=== PATIENT | male | born 1940 | race Caucasian/White ===

== ENCOUNTER 2016-09-19 09:36 | Inpatient (IN) | payer MEDICARE ==
--- NOTE | ~2016-09-19 | CN ---
Consultation Report [facility] [address] [place]. [address] NAME: LYNN PHELAN : 42 STATUS : ADM Albertina PAT#: [id number] AGE: 76 ADM/REG DATE : 09/19/16 MR#: [id number] REPORT SERV DATE: 09/20/16 DICTATED BY: ANSELMO HARO DATE: 09/19/16 REPORT STATUS : Draft TRANSCRIBED BY: MODL DATE: 09/19/16 CARDIOLOGY CONSULTATION DATE OF CONSULTATION: 09/19/2016 REQUESTING PHYSICIAN: Diamond Walker M.D. INDICATIONS: Hypertensive urgency. HISTORY OF PRESENT ILLNESS: Lynn Phelan is a 76-year-old man followed in the office by Dr. Philip Ventura. The patient has a history of hypertension. He was recently seen in the office and had complained of some dizziness. Based on this, his amlodipine was discontinued. He then presents to the emergency room today with high blood pressure, 203/96. In the emergency room, he apparently did not receive any of his blood pressure medications today. Throughout the day, he has become a bit more anxious and his blood pressure is now 246/110 with complaints of chest pain and headache, and we were asked to evaluate with the patient urgently. The patient has apparently been having some substernal burning sensation in his chest. It was felt possibly to be related to some spicy food that he ate on review of the office notes. He has a difficult time qualifying the chest discomfort he has experienced in the present time. No orthopnea, no PND, and no significant shortness of breath. By chest x-ray, he has venous congestion. PAST MEDICAL HISTORY: Chronic kidney disease, arthritis, coronary artery disease, previous bypass grafting, previous PCI and peripheral vascular disease, carotid artery stenosis, diabetes, hypertension, hyperlipidemia, previous MD, and obesity. HOME MEDICATIONS: Listed in [facility] home medicine form and reviewed. SOCIAL HISTORY: Former smoker. No alcohol. FAMILY HISTORY: Reviewed and noncontributory. REVIEW OF SYSTEMS: As per the HPI. Otherwise, all review of systems is negative. PHYSICAL EXAMINATION: VITAL SIGNS: Blood pressure 246/110. GENERAL: Appears stated age. The patient is anxious and red in the face. EYES: Sclerae anicteric, no arcus senilis. MOUTH: Oral mucosa moist, lips acyanotic. Consultation Report [facility] [address] [place]. [address] NAME: LYNN PHELAN : 42 STATUS : ADM Albertina PAT#: [id number] AGE: 76 ADM/REG DATE : 09/19/16 MR#: [id number] REPORT SERV DATE: 09/20/16 DICTATED BY: ANSELMO HARO DATE: 09/19/16 REPORT STATUS : Draft TRANSCRIBED BY: MODL DATE: 09/19/16 NECK: Jugular venous pressure normal, no carotid bruits. LUNGS: Lungs are mostly clear. CARDIAC: Heart is tachycardic with frequent ectopy. ABDOMEN: Obese, soft, and nontender. EXTREMITIES: No edema. SKIN: Warm and dry. NEURO/PSYCH: Alert and oriented, nonfocal, mood appropriate. DIAGNOSTIC DATA: ECG is sinus rhythm with a right bundle-branch block conduction pattern and lateral ST changes consistent with ischemia. Premature ventricular contraction. As stated previously, chest x-ray is reported as consistent with venous congestion. Data: BNP 327, creatinine 1.1, potassium 4.1, and troponin 0.02. IMPRESSIONS: 1. Hypertensive urgency with chest pain, headache, and venous congestion on chest x-ray. 2. Coronary artery disease, previous bypass grafting, previous PCI. 3. Peripheral vascular disease and carotid artery stenosis. 4. Diabetes. RECOMMENDATION: Control blood pressure. We will resume the patient's Coreg. We will increase lisinopril to 10 mg daily. We will add Norvasc 5 mg b.i.d. We will add as-needed clonidine. We will add as-needed labetalol. We will add as-needed IV enalapril. Otherwise, follow labs. Follow troponin. Consider ischemia evaluation pending patient's clinical course. ANGELLA/BROOKE Anselmo Haro M.D. / [id number] CC: Malgorzata Garcia M.D.
--- NOTE | ~2016-09-19 | DS ---
Discharge Summary [place] [id number] [facility] [place]. [address] NAME: LYNN PHELAN : 42 STATUS : DIS IN PAT#: [id number] AGE: 76 ADM/REG DATE : 09/19/16 MR#: [id number] REPORT SERV DATE: 09/22/16 DICTATED BY: DATE: REPORT STATUS : Draft TRANSCRIBED BY: MODL DATE: 09/21/16 ADMISSION DATE: 09/19/2016 DISCHARGE DATE: 09/21/2016 DISCHARGE DIAGNOSES: 1. Uncontrolled hypertension. 2. Shortness of breath on exertion. 3. Dizziness. 4. Atypical chest pain. 5. Diabetes mellitus type 2. 6. History of congestive heart failure. 7. History of myocardial infarction. 8. History of CABG x5. 9. History of chronic kidney disease stage 3. 10.History of coronary artery disease with stents. 11.Hyperlipidemia. 12.Osteoarthritis. 13.History of left carotid endarterectomy. 14.Hydrocele. CONSULTATION: Cardiology, Dr. Haro. PROCEDURES AND IMAGIN. 09/19/2016, portable chest x-ray showed mild central venous congestion. 2. 09/19/2016, CT of the brain without contrast shows no acute infarct or hemorrhage, stable mild atrophy and moderate chronic white matter gliosis. 3. Renal ultrasound on 09/20/2016 showed kidneys symmetric. Not obstructed. Multiple cysts identified bilaterally. No suspect features. 4. 09/20/2016, renal duplex showed no evidence of renal artery stenosis. 5. Echocardiogram on 09/20/2016 showed technically difficult study secondary to poor acoustic windows. Grossly normal left ventricular systolic function with ejection fraction of 55%. Grossly normal right ventricular size and systolic function. No evidence of valvular regurgitation or stenosis. 6. 09/20/2016, portable chest x-ray showed mild bibasilar atelectasis with stable eventration of the right hemidiaphragm. Stable mild enlargement of the cardiac silhouette with evidence of previous CABG. HOSPITAL COURSE: Please refer to Dr. Diamond Walker's history and physical dated 09/19/2016 for complete details regarding the patient's admission. In brief, the patient was admitted for initial workup and management of his complaint of dizziness, hypertension, and epigastric burning and shortness of breath on exertion. The patient had just seen Dr. Ventura two days prior to admission and at that time, his blood pressure was stable. The patient had some complaints of dizziness and lower extremity edema at that visit. During his stay in the hospital, the patient has had extensive testing done, which has been negative. The patient has continued to exhibit uncontrolled hypertension despite addition of amlodipine with blood pressures exceeding 200 systolically. The patient has required IV Discharge Summary [address] [place]. [address] NAME: LYNN PHELAN : 42 STATUS : DIS IN PAT#: [id number] AGE: 76 ADM/REG DATE : 09/19/16 MR#: [id number] REPORT SERV DATE: 09/22/16 DICTATED BY: DATE: REPORT STATUS : Draft TRANSCRIBED BY: MODL DATE: 09/21/16 hydralazine and p.o. clonidine. The patient's shortness of breath has resolved. The patient does have dizziness on a chronic basis due to an inner ear problem and does take meclizine for this. The patient's atypical chest pain has resolved at this time. The patient has had subjective headaches due to his severe hypertension that are controlled when his blood pressure is decreased below 200. The patient was given a one time dose of Lasix, which improved his venous congestion on his chest x-ray and the patient now has lung sounds that are clear. The patient has a history of chronic kidney disease stage 3, which has been stable at this time with BUN of 19, creatinine 1.35, GFR of 51. During his stay, the patient's troponins have been from 0.08-0.05. His BNP upon admission was 327.8 and his TSH was 0.916. The patient continues to have ectopy on his EKG with PACs and PVCs. The patient also has bilateral hydrocele, which is being followed by Dr. Larose. The patient will be followed up by Dr. Ventura in the next one to two weeks regarding his blood pressure issues and the renal artery ultrasound. The patient will be having a nuclear stress test early next week with sedation. PHYSICAL EXAMINATION: GENERAL: The patient is a 76-year-old male, who states no complaint of headache this morning. He denies pain and is moving more easily in bed. He desires discharge and outpatient stress test due to grandson's this afternoon. VITAL SIGNS: Blood pressure 192/86, O2 saturation 96% on room air, temperature is 99.0, respirations are 16, heart rate is 69. HEENT: Head is atraumatic, normocephalic. Pupils are equal, round, and reactive to light. No xanthelasma. Sclerae are clear and nonicteric. NECK: Neck is supple with no obvious lymphadenopathy or thyromegaly. Neck veins are flat. CARDIAC: The patient is in a regular rhythm with frequent ectopy. LUNGS: Lungs are clear to auscultation with normal respiratory effort. GI: Abdomen is soft and nontender with active bowel sounds in all four quadrants. Normal bowel habitus. No palpable organomegaly. EXTREMITIES: No significant edema, clubbing, or cyanosis. The patient has left lower extremity coke bottle discoloration scale on his skin. He has right lower extremity vascular discoloration and bilateral lower extremity atrophic nails. NEURO/PSYCH: The patient is alert and oriented x4, pleasant and cooperative. Cranial nerves II through XII are grossly intact. SKIN: Skin is warm and dry with normal turgor. DISCHARGE MEDICATIONS: Amlodipine 5 mg twice daily, aspirin 81 mg daily, Coreg 25 mg twice daily, clopidogrel 75 mg daily, vitamin B12 1000 mcg every 30 days, gabapentin 100 mg daily, lisinopril 10 mg twice daily, omeprazole 20 mg daily, Zocor 10 mg twice daily, Nitrostat 0.4 mg sublingually p.r.n. as directed, gummy vitamins two tablets daily, potassium chloride 10 mEq at bedtime, Metamucil one packet daily p.r.n. and vitamin B12 liquid 5000 mcg daily, clonidine 0.1 mg p.o. q.4 hours p.r.n. systolic blood pressure greater than or equal to 165. ALLERGIES: THE PATIENT IS ALLERGIC TO CYMBALTA FOR WHICH HE GETS HIVES AND BLISTERS, AND HE IS ALLERGIC TO STATINS, WHICH GIVES HIM HIVES AND BLISTERS, BUT CAN TAKE IN SMALL DOSES. DISCHARGE INSTRUCTIONS: The patient is to follow up with his PCP in one week for labs. He is to follow up with Dr. Ventura in one to two weeks to address his blood pressure and his Discharge Summary [address] [place]. [address] NAME: LYNN PHELAN : 42 STATUS : DIS IN [facility]#: [id number] AGE: 76 ADM/REG DATE : 09/19/16 MR#: [id number] REPORT SERV DATE: 09/22/16 DICTATED BY: DATE: REPORT STATUS : Draft TRANSCRIBED BY: MODL DATE: 09/21/16 test results. The patient will be also having a nuclear stress test with medication early next week. If the patient is to have any more episodes of extremely elevated blood pressure or chest pain or shortness of breath, the patient is to call his grain cleaner, Dr. Ventura or to present to the emergency department. Approximately, 40 minutes has been spent coordinating discharge care of this patient, including [id number] encounter and summarization of the discharge. DIPIKA/BROOKE Larissa Arias NP / [id number] CC: Camilo Barrera DAVID K
--- NOTE | ~2016-09-19 | HP ---
History And Physical [place] [id number] [facility] [place]. [address] NAME: LYNN PHELAN : 41 STATUS : ADM Albertina PAT#: [id number] AGE: 76 ADM/REG DATE : 09/19/16 MR#: [id number] REPORT SERV DATE: 09/19/16 DICTATED BY: WAYNE GRANADOS DATE: 09/19/16 REPORT STATUS : Draft TRANSCRIBED BY: MODL DATE: 09/19/16 DATE OF ADMISSION: 09/19/2016 HISTORY OF PRESENT ILLNESS: The patient is a 76-year-old male, who presented to [facility] with complaints of dizziness, being hypertensive, blood pressure on presentation was 203/96, as well as he was complaining of some epigastric burning sensation as well as he is short of breath on minimal physical exertion and walking. He has dizziness, but he says that he has dizziness for years that could be related to inner ear problem that he had before. The patient says that his heartburning sensation is exactly in the epigastric area, there is no radiation to the left arm, there is no radiation to the jaw, just kind of looks like continuous. The patient denies any fever. No headache. No abdominal pain. REVIEW OF SYSTEMS: All 14-point review of systems done and they are all negative, except for what is stated in the history of present illness. PAST MEDICAL HISTORY: Collected from medical records as well as from the patient. The patient saw Dr. Ventura on Saturday, Dr. Ventura is his microbiology technologist, and we have visit notes from 09/17/2016. At that time, he had complaints of dizziness and he also was complaining of lower extremity edema. Again, he had the episode of substernal burning-type chest pain, which occurred on 09/16/2016. It was described as sensation of burning in the esophagus according to Dr. Ventura's note. He had hypertension associated with dyspnea, at that time as well as he had premature ventricular contractions on the EKG during the visit time, which was described in the note of Dr. Ventura. On a visit two days ago, amlodipine was discontinued and there was a consideration to increase his lisinopril. During visit time, the patient's blood pressure was 150/90. His chest pain was probably related to reflux according to Dr. Ventura's note. Also, there was a concern if the patient is compliant with the CPAP. Past medical history includes chronic kidney disease stage 3; osteoarthritis; atherosclerotic heart disease; history of left carotid endarterectomy in the past; type 2 diabetes, although the patient denies any history of diabetes; essential hypertension; hypercholesterolemia; history of STEMI in the past; obesity; obstructive sleep apnea, and the patient denied any history of strokes in the past and he denied diabetes, although diabetes is listed in his past medical history. According to Dr. Ventura, he had a stress test done in 2014 and an echocardiogram in 2015, which showed mild tricuspid regurgitation, mild mitral regurgitation and ejection fraction was 60% in 06/2015. The patient had two stents placed in 06/2015. He has history of coronary artery bypass grafting in 1999. PAST SURGICAL HISTORY: Includes left carotid endarterectomy, history of knee surgery, cholecystectomy in 1985. FAMILY HISTORY: Positive for hypertension and heart disease on both sides, mother and father. The patient also has history of inner ear problem with dizziness according to him for many years. History And Physical [address] [address] NAME: LYNN PHELAN : 42 STATUS : ADM Albertina PAT#: [id number] AGE: 76 ADM/REG DATE : 09/19/16 MR#: [id number] REPORT SERV DATE: 09/19/16 DICTATED BY: WAYNE GRANADOS DATE: 09/19/16 REPORT STATUS : Draft TRANSCRIBED BY: BROOKE DATE: 09/19/16 HOME MEDICATIONS: Include carvedilol 25 mg p.o. b.i.d.; enteric-coated aspirin 81 mg daily; Neurontin 100 mg, pharmacy is going to clarify frequency of Neurontin; lisinopril 5 mg, takes one tablet every night and half tablet by oral route twice daily; multivitamins daily; nitroglycerin 0.4 mg sublingually p.r.n.; omeprazole 20 mg daily; Plavix 75 mg daily; simvastatin 40 mg daily, he takes half tablet by oral route twice a day; tramadol 50 mg tablet; vitamin B12 1000 mcg/mL injection solution. Pharmacy is going to clarify the dosage and frequency of the medications and the medications themselves. Once again on 09/17, the patient's blood pressure was 140/[address] Ventura's note. ALLERGIES: HE IS ALLERGIC TO CYMBALTA AND STATINS. PHYSICAL EXAMINATION: GENERAL: Overweight male, not in acute distress, resting quietly. VITAL SIGNS: Blood pressure 203/96 initially; on recheck one, this was 160/80 and then again 203/96. Temperature 98, heart rate 63, respirations 16, oxygen saturation 97% on room air. HEENT: Head, atraumatic and normocephalic. Conjunctivae clear. Pupils are equal and reactive to light and accommodation. Extraocular muscles are intact. NECK: Supple. Trachea is midline. No supraclavicular or cervical lymphadenopathy. LUNGS: Diminished breath sounds bilaterally with slightly decreased respiratory effort. CARDIOVASCULAR SYSTEM: Regular rate and rhythm. Point of maximal impulse not displaced. ABDOMEN: Obese, soft, nontender, nondistended. Positive normoactive bowel sounds. EXTREMITIES: No clubbing, cyanosis, or edema. SKIN: Normal color and turgor. PSYCHIATRIC: Normal mood and affect. NEUROLOGIC: Awake, alert, and oriented in time, place, and person. Muscle strength is 5/5 bilaterally on the upper and lower extremities. LABORATORY RESULTS: Sodium 144, potassium 4.1, chloride 107, carbon dioxide 29, BUN 16, creatinine 1.16, blood sugar 157. Troponin 0.02. Magnesium 2.1. White count 5, hemoglobin 13.9, hematocrit 41.9, platelet count 233. BNP is 327.8. Chest x-ray, mild central venous congestion. CT of the head without contrast was ordered by Dr. Franklin and still results are pending, but she told me that preliminary report was negative. EKG showed sinus rhythm with occasional premature ventricular complexes with premature atrial complexes and right bundle-branch block, heart rate of 65. ASSESSMENT AND PLAN: This is a 76-year-old male with a history of coronary artery disease, history of heartburn, history of irritable bowel syndrome in the past, presented with: 1. Hypertensive urgency. 2. Dyspnea on exertion. 3. Dizziness. 4. Epigastric discomfort, heartburn versus related to the chest pain. 5. History of coronary artery disease with a history of CABG in 1999. 6. History of stents in 2016. 7. History of carotid endarterectomy on the left side in the past. 8. Abnormal EKG with premature ventricular contractions. History And Physical [address] [place] [place] [address] NAME: LYNN PHELAN : 42 STATUS : ADM Albertina PAT#: [id number] AGE: 76 ADM/REG DATE : 09/19/16 MR#: [id number] REPORT SERV DATE: 09/19/16 DICTATED BY: WAYNE GRANADOS DATE: 09/19/16 REPORT STATUS : Draft TRANSCRIBED BY: MODL DATE: 09/19/16 We will put the patient under observation. Dr. Franklin already put a bed request for observation, and we will control his blood pressure. We will continue his beta-blockers, especially in the setting of premature ventricular contractions, as well as continue his home MAHAMED inhibitors. We will give him hydralazine as needed for his hypertension. If blood pressure will be 160 and above as well as if there is a chest pain, we will control with nitroglycerin. We will continue his aspirin and Plavix. We will wait for the results of the CT of the head. I will also order echocardiogram. My partner will see this patient starting tomorrow morning. Also, in the emergency room before I saw the patient, Dr. Franklin already gave him Lasix 40 mg IV. Everything was discussed with the patient. /BROOKE Wayne Granados M.D. / [id number] CC: Camilo Barrera M.D. John Carter Hemphill, MD
[~2016-09-19 09:36] MED LIST: ALEVE220 MG PO; ALTACE10 MG PO; B121000P IM; BRILINTA90 MG PO; COREG25 PO; FISH OIL300 MG PO; GARLIC PO; GLUCCHONDR PO; HALF81 PO; HYGROTON 25 MG25 MG OR; KLOR-CON M1010 MEQ PO; L40 PO; MICRO-K10 MEQ PO; MULTIPLE VIT PO; MULTIVIT/MIN PO; NEUR300 PO; NITROBID2 % TOP; NITROII20C TOP; NITROSTAT0.4 MG SL; NORV10 PO; ONGLYZA2.5 MG PO; PLAVIX PO; PRILO PO; T PO; VALERIAN PO; VITAMIN B SL; VITAMIN D31000 UNIT PO; VITC500 PO; ZOCOR20 PO; ZOCOR40 PO; [UNRECOGNIZED DRUG - OTHER] PO; [UNRECOGNIZED DRUG - REMARK] PO
[2016-09-19 10:28] LABS: BASOPHILS 0.4 %; BASOPHILS ABSOLUTE 0.02 10/3/uL (0.0-0.16); HEMATOCRIT 41.9 % (40.0-51.0); HEMOGLOBIN 13.9 g/dL (13.6-17.8); IMMATURE GRANULOCYTES 0.2 %; IMMATURE GRANULOCYTES ABSOLUTE 0.01 10/3/uL (0.0-0.11); LYMPHOCYTES 21.6 %; LYMPHOCYTES ABSOLUTE 1.09 10/3/uL (0.67-4.30); MEAN CORPUS HGB CONC 33.2 g/dL (32.0-36.0); MEAN CORPUSCULAR HEMOGLOB 28.9 pg (26.0-34.0); MEAN CORPUSCULAR VOLUME 87.1 fL (80-100); MEAN PLATELET VOLUME 10.4 fL (9.2-13.0); MONOCYTES 11.3 %; MONOCYTES ABSOLUTE 0.57 10/3/uL (0.21-1.20); NEUTROPHILS 64.5 %; NEUTROPHILS ABSOLUTE 3.25 10/3/uL (2.02-8.40); PLATELET COUNT 233 10/3/uL (150-400); RBC DISTRIBUTION WIDTH 14.7 % (12.0-16.0); RED CELL COUNT 4.81 10/6/uL (4.7-6.1)
[2016-09-19 10:32] LABS: MANUAL DIFF NO %
[2016-09-19 10:35] LABS: INTERNATIONAL NORMAL RATI 1.1 UNITS (-); PARTIAL THROMBO TIME 27.2 SEC (22.5-37.2); PROTIME (NOT ORD) 13.6 SEC (12.0-14.5)
[2016-09-19 10:45] LABS: BUN (BLOOD UREA NITROGEN) 16 MG/DL (6-23); CALCIUM, SERUM 9.3 MG/DL (8.5-10.4); CHEST PAIN PROFILE TAT 0 Hrs 21 Mins; CHLORIDE, SERUM 107 MMOL/L (96-112); CO2 (CARBON DIOXIDE) 29 MMOL/L (24-34); CREATININE 1.16 MG/DL (0.70-1.30); GFR AFRICAN AMERICAN 71 ML/MIN (>=60); GFR NON AFRICAN AMERICAN 61 ML/MIN (>=60); SODIUM, SERUM 144 MMOL/L (135-148); TROPONIN I 0.02 NG/ML (<0.05)
[2016-09-19 10:46] LABS: GLUCOSE, SERUM 157 MG/DL (60-99); POTASSIUM, SERUM 4.1 MMOL/L (3.5-5.3)
[2016-09-19] MEDS ORDERED: HALF81 PO (14:48)
[2016-09-19] MEDS ORDERED: COREG25 PO (14:48)
[2016-09-19] MEDS ORDERED: PRIN5 PO (14:48)
[2016-09-19] MEDS ORDERED: *UNABLE1 (14:48)
[2016-09-19] MEDS ORDERED: ZOCOR10 PO (14:49)
[2016-09-19] MEDS ORDERED: NORVASC (14:49)
[2016-09-19] MEDS ORDERED: NITROSTAT0.4 MG SL (14:49)
[2016-09-19] MEDS ORDERED: LASIX (14:50)
[2016-09-19] MEDS ORDERED: GUMMY VITAMIN PO (14:50)
[2016-09-19] MEDS ORDERED: PLAVIX PO (14:51)
[2016-09-19] MEDS ORDERED: NEUR100 PO (14:51)
[2016-09-19] MEDS ORDERED: B121000P IM (14:51)
[2016-09-19] MEDS ORDERED: PRILO PO (15:44)
[2016-09-19] MEDS ORDERED: METPAKSF PO (15:44)
[2016-09-19] MEDS ORDERED: K-TABS10 MEQ PO (15:44)
[2016-09-19] MEDS ORDERED: VITAMIN B-12 LIQUID PO (15:45)
[2016-09-19 19:35] LABS: ULTRASENSITIVE TSH 0.916 MCIU/ML (0.358-3.740)
[2016-09-19 19:39] LABS: TROPONIN I 0.03 NG/ML (<0.05)
[2016-09-20 04:19] LABS: BASOPHILS 0.4 %; BASOPHILS ABSOLUTE 0.02 10/3/uL (0.0-0.16); EOSINOPHILS 2.2 %; EOSINOPHILS ABSOLUTE 0.12 10/3/uL (0.0-0.53); HEMATOCRIT 41.3 % (40.0-51.0); HEMOGLOBIN 13.7 g/dL (13.6-17.8); IMMATURE GRANULOCYTES 0.2 %; IMMATURE GRANULOCYTES ABSOLUTE 0.01 10/3/uL (0.0-0.11); LYMPHOCYTES 26.9 %; LYMPHOCYTES ABSOLUTE 1.44 10/3/uL (0.67-4.30); MEAN CORPUS HGB CONC 33.2 g/dL (32.0-36.0); MEAN CORPUSCULAR VOLUME 87.3 fL (80-100); MONOCYTES 13.8 %; MONOCYTES ABSOLUTE 0.74 10/3/uL (0.21-1.20); NEUTROPHILS 56.5 %; NEUTROPHILS ABSOLUTE 3.03 10/3/uL (2.02-8.40); PLATELET COUNT 241 10/3/uL (150-400); RBC DISTRIBUTION WIDTH 14.8 % (12.0-16.0); RED CELL COUNT 4.73 10/6/uL (4.7-6.1); WHITE BLOOD CELLS 5.4 10/3/uL (4.5-10.5)
[2016-09-20 04:20] LABS: MANUAL DIFF NO %
[2016-09-20 04:38] LABS: BUN (BLOOD UREA NITROGEN) 19 MG/DL (6-23); CALCIUM, SERUM 8.9 MG/DL (8.5-10.4); CHLORIDE, SERUM 108 MMOL/L (96-112); CO2 (CARBON DIOXIDE) 30 MMOL/L (24-34); CREATININE 1.21 MG/DL (0.70-1.30); GFR AFRICAN AMERICAN 67 ML/MIN (>=60); GFR NON AFRICAN AMERICAN 58 ML/MIN (>=60); SODIUM, SERUM 144 MMOL/L (135-148)
[2016-09-20 04:39] LABS: GLUCOSE, SERUM 112 MG/DL (60-99); TROPONIN I 0.08 NG/ML (<0.05)
[2016-09-21 07:48] LABS: BASOPHILS 0.4 %; BASOPHILS ABSOLUTE 0.02 10/3/uL (0.0-0.16); EOSINOPHILS 2.8 %; EOSINOPHILS ABSOLUTE 0.15 10/3/uL (0.0-0.53); HEMATOCRIT 42.7 % (40.0-51.0); HEMOGLOBIN 13.7 g/dL (13.6-17.8); IMMATURE GRANULOCYTES 0.2 %; IMMATURE GRANULOCYTES ABSOLUTE 0.01 10/3/uL (0.0-0.11); LYMPHOCYTES 18.1 %; LYMPHOCYTES ABSOLUTE 0.97 10/3/uL (0.67-4.30); MEAN CORPUS HGB CONC 32.1 g/dL (32.0-36.0); MEAN CORPUSCULAR HEMOGLOB 28.4 pg (26.0-34.0); MEAN CORPUSCULAR VOLUME 88.4 fL (80-100); MEAN PLATELET VOLUME 10.6 fL (9.2-13.0); MONOCYTES 14.8 %; MONOCYTES ABSOLUTE 0.79 10/3/uL (0.21-1.20); NEUTROPHILS 63.7 %; NEUTROPHILS ABSOLUTE 3.41 10/3/uL (2.02-8.40); PLATELET COUNT 218 10/3/uL (150-400); RBC DISTRIBUTION WIDTH 14.9 % (12.0-16.0); RED CELL COUNT 4.83 10/6/uL (4.7-6.1); WHITE BLOOD CELLS 5.4 10/3/uL (4.5-10.5)
[2016-09-21 07:49] LABS: MANUAL DIFF NO %
[2016-09-21 08:05] LABS: BUN (BLOOD UREA NITROGEN) 22 MG/DL (6-23); CALCIUM, SERUM 8.7 MG/DL (8.5-10.4); CHLORIDE, SERUM 109 MMOL/L (96-112); CO2 (CARBON DIOXIDE) 31 MMOL/L (24-34); CREATININE 1.35 MG/DL (0.70-1.30); GFR AFRICAN AMERICAN 59 ML/MIN (>=60); GFR NON AFRICAN AMERICAN 51 ML/MIN (>=60); GLUCOSE, SERUM 137 MG/DL (60-99); POTASSIUM, SERUM 3.9 MMOL/L (3.5-5.3); SODIUM, SERUM 145 MMOL/L (135-148); TROPONIN I 0.05 NG/ML (<0.05)
[2016-09-21] MEDS ORDERED: CAT1 PO (10:53)
[2016-09-21] MEDS ORDERED: NORV5 PO (10:56)
[2016-09-21] MEDS ORDERED: ZESTRIL10 MG PO (10:57)
[2016-09-21] MEDS ORDERED: COREG25 PO (10:58)
[2016-10-16] MEDS ORDERED: NITROSTAT0.4 MG SL (08:27)
[2016-10-16] MEDS ORDERED: PRIN20 PO (08:27)
[2016-10-16] MEDS ORDERED: ULTRAM50 PO (08:28)
[2016-10-16] MEDS ORDERED: ZOCOR20 PO (08:28)
[2016-10-18] MEDS ORDERED: BRILINTA90 MG PO (09:45)
[2016-10-18] MEDS ORDERED: CRESTOR10 PO (09:45)
== END 2016-09-21 11:47 | disposition home or self-care (01) | DRG 305 ==
LOC: ER 09:36 → CDU1 14:19 → CDU2 15:08
PROVIDERS: Emergency Medicine; Hospitalist; Nurse Practitioner Family
DX: I16.0 Hypertensive urgency (principal); E11.22 Type 2 diabetes mellitus with diabetic chronic kidney disease; N18.3 Chronic kidney disease, stage 3 (moderate); I25.2 Old myocardial infarction; I25.10 Atherosclerotic heart disease of native coronary artery without angina pectoris; Z95.5 Presence of coronary angioplasty implant and graft; Z95.1 Presence of aortocoronary bypass graft; E78.5 Hyperlipidemia, unspecified; N43.3 Hydrocele, unspecified; I13.0 Hypertensive heart and chronic kidney disease with heart failure and stage 1 through stage 4 chronic kidney disease, or unspecified chronic kidney disease; Z79.899 Other long term (current) drug therapy; Z79.82 Long term (current) use of aspirin; Z79.02 Long term (current) use of antithrombotics/antiplatelets; Z88.8 Allergy status to other drugs, medicaments and biological substances; I49.3 Ventricular premature depolarization
CPT/HCPCS: 70450; 71010; 76775; 80048; 82962; 83036; 83735; 83880; 84443; 84484; 85025; 85610; 85730; 93005; 93975; 96374; 99291; A9270-GY; C8929; G0463; J0360; J1170; Q9957